=== PATIENT | male | born 1965 | race Caucasian/White ===

== ENCOUNTER 2017-04-22 17:15 | Inpatient (IN) | payer SELFPAY ==
[~2017-04-22] VITALS: Ht 172.7 cm; Wt 111.1 kg
[~2017-04-22 17:15] MED LIST: IOHEXOL-300 100 ML BOTTLE ONE; SODIUM CHLORIDE 0.9% 10ML VIAL ONE
[2017-04-22] MEDS ORDERED: OCTREOTIDE 1,000 MCG in SODIUM CHLORIDE 0.9% 100 ML IV STA (17:41)
[2017-04-22] MEDS ORDERED: OCTREOTIDE ACETATE 50 MCG/ML 1ML IV STA (17:41)
[2017-04-22] MEDS ORDERED: SODIUM CHLORIDE 0.9% 1,000 ML IV ONE (17:41)
[2017-04-22] MEDS ORDERED: PANTOPRAZOLE SODIUM 40 MG/VIAL IV STA (17:41)
[2017-04-22] MEDS ORDERED: ONDANSETRON HCL 4MG/2ML VIAL IV STA (17:41)
[2017-04-22] MEDS ORDERED: MORPHINE SULFATE 4 MG/ML CPJ (NOT FOR IM USE) IV STA (17:41)
[2017-04-22] MEDS ORDERED: PANTOPRAZOLE 80 MG in SODIUM CHLORIDE 0.9% 100 ML IV STA (17:41)
[2017-04-22] MEDS: OCTREOTIDE 1,000 MCG in SODIUM CHLORIDE 0.9% 100 ML IV SCH (19:12)
[2017-04-22 19:28] LABS: HEMATOCRIT. 30.3 % (42.0-52.0); HEMOGLOBIN. 9.8 g/dL (14.0-18.0); MEAN CORPUSCULAR HEMOGLOBIN 23.2 pg (28.0-32.0); MEAN CORPUSCULAR VOLUME 71.4 fL (80.0-94.0); MEAN PLATELET VOLUME 9.1 fl (7.4-10.4); PLATELET 114 x1000/uL (130-400); RED BLOOD CELL COUNT 4.25 mill/uL (4.7-6.1)
[2017-04-22 19:37] LABS: INR 1.6; PARTIAL THROMBOPLASTIN TIME 29.2 sec (24.0-34.0); PROTHROMBIN TIME 16.6 sec
[2017-04-22 19:47] LABS: CARBON DIOXIDE 18 mEq/L (21-32); CHLORIDE 79 mEq/L (98-107); ETHANOL BLOOD 57 mg/dL
[2017-04-22 20:41] LABS: CLARITY URINE CLOUDY (CLEAR); COLOR URINE DARK YELLOW (YELLOW); GLUCOSE URINE 2+ (NEGATIVE); KETONES URINE 1+ (NEGATIVE); LEUKOCYTE ESTERASE URINE NEGATIVE (NEGATIVE); NITRITE URINE NEGATIVE (NEGATIVE); OCCULT BLOOD URINE 2+ (NEGATIVE); PROTEIN URINE 1+ (NEGATIVE); SPECIFIC GRAVITY URINE 1.025 (1.005-1.030)
[2017-04-22 20:42] LABS: PLATELET ESTIMATE SLIGHTLY DECREASED
[2017-04-22] MEDS ORDERED: LORAZEPAM 2MG/ML CPJ IV PRN (20:45)
[2017-04-22] MEDS ORDERED: ONDANSETRON HCL 4MG/2ML VIAL IV PRN (20:45)
[2017-04-22] MEDS ORDERED: IPRATROPIUM/ALBUTEROL 0.5-3(2.5)MG/3ML NEB INH PRN (20:45)
[2017-04-22] MEDS ORDERED: GUAIFENESIN 200MG/10ML SUGAR FREE UDC PO PRN (20:45)
[2017-04-22] MEDS ORDERED: HYDROMORPHONE HCL/PF 2MG/ML CPJ IV PRN (20:45)
[2017-04-22] MEDS ORDERED: DOCUSATE SODIUM 100MG CAPSULE PO PRN (20:45)
[2017-04-22] MEDS ORDERED: HYDROCODONE/ACETAMINOPHEN 5/325MG TABLET PO PRN (20:45)
[2017-04-22] MEDS ORDERED: CLONIDINE 0.1MG TABLET PO PRN (20:45)
[2017-04-22] MEDS ORDERED: MAGNESIUM/ALUMINUM HYDROXIDE/SIMETHICONE 30ML UDC PO PRN (20:45)
[2017-04-22] MEDS ORDERED: DIPHENHYDRAMINE 50MG/ML VIAL IV PRN (20:45)
[2017-04-22] MEDS ORDERED: ACETAMINOPHEN 325MG TABLET PO PRN (20:45)
[2017-04-22] MEDS ORDERED: NA PHOS,M-B/NA PHOS,DI-BA ENEMA 118ML PR PRN (20:45)
[2017-04-22 22:15] LABS: CARBON DIOXIDE 17 mEq/L (21-32); CHLORIDE 85 mEq/L (98-107)
[2017-04-22 22:22] LABS: TROPONIN I 0.12 ng/mL (0.00-0.04)
[2017-04-22 22:59] LABS: HEMATOCRIT 24.4 % (42.0-52.0); HEMOGLOBIN 7.8 g/dL (14.0-18.0)
[2017-04-23] VITALS (92 sets, daily range): BP systolic 44–186; BP diastolic 22–91
[2017-04-23] MEDS ORDERED: SODIUM CHLORIDE 0.45% 1,000 ML IV SCH (01:00)
[2017-04-23 07:10] LABS: BASOPHILS % 0.3 % (0.0-2.0); LYMPHOCYTES % 7.9 % (20.0-50.0); MEAN CORPUSCULAR HEMOGLOBIN 24.5 pg (28.0-32.0); MEAN CORPUSCULAR VOLUME 75.5 fL (80.0-94.0); MEAN PLATELET VOLUME 10.3 fl (7.4-10.4); MONOCYTES % 8.2 % (2.0-8.0); NEUTROPHILS % 83.6 % (40.0-76.0); PLATELET 78 x1000/uL (130-400); RED BLOOD CELL COUNT 2.46 mill/uL (4.7-6.1); RED CELL DISTRIBUTION WIDTH 14.7 % (11.6-14.6)
[2017-04-23 07:20] LABS: CHLORIDE 85 mEq/L (98-107); HDL CHOLESTEROL 6 mg/dL (40-59); LDL CHOLESTEROL 26 mg/dL (5-100); TROPONIN I 0.34 ng/mL (0.00-0.04)
[2017-04-23 07:23] LABS: HEMATOCRIT. 18.6 % (42.0-52.0)
[2017-04-23 08:21] LABS: CARBON DIOXIDE 9 mEq/L (21-32)
[2017-04-23] MEDS ORDERED: SODIUM BICARBONATE 8.4% 1 MEQ/ML 50ML SYR IV NR ×2 (08:54→09:12)
[2017-04-23] MEDS ORDERED: FERROUS SULFATE 325MG TABLET PO SCH (09:00)
[2017-04-23] MEDS ORDERED: SUCCINYLCHOLINE CHLORIDE 200MG/10ML VIAL IV ONE (09:00)
[2017-04-23] MEDS ORDERED: CALCIUM GLUCONATE 100MG/ML 10ML VIAL IV ONE (09:00)
[2017-04-23] MEDS ORDERED: ETOMIDATE 2MG/ML 10ML VIAL IV ONE (09:00)
[2017-04-23] MEDS ORDERED: THIAMINE HCL 100MG TABLET PO SCH (09:00)
[2017-04-23] MEDS ORDERED: SODIUM CHLORIDE 0.9% 1,000 ML IV ONE (09:00)
[2017-04-23] MEDS ORDERED: FOLIC ACID 1MG TABLET PO SCH (09:00)
[2017-04-23 09:10] LABS: BG BASE EXCESS -25.6 mmol/L (-2.0-2.0); BG DEOXYHEMOGLOBIN 2.3 % (0.0-5.0); BG FRACTION INSPIRED OXYGEN 100; BG HCO3 ACT 6.3 mmol/L (22.0-26.0); BG METHEMOGLOBIN 0.3 % (0.0-1.5); BG OXYGEN SATURATION 97.7 % (92.0-98.5); BG OXYHEMOGLOBIN 96.4 % (94.0-97.0); BG PCO2 41.9 mmHg (35.0-45.0); BG PH 6.794 (7.350-7.450); BG PO2 194.9 mmHg (75.0-100.0); BG SAMPLE SITE LEFT BRACHIAL; BG TIDAL VOLUME(mL) 600 mL; BG TOTAL HEMOGLOBIN 5.1 g/dL (12.0-18.0); BG VENT MODE VENT - A/C; BG VENT RATE 18 set
[2017-04-23] MEDS: NOREPINEPHRINE 8 MG in DEXT 5% WATER 242 ML IV PRN ×3 (09:13→17:26)
[2017-04-23] MEDS ORDERED: MIDAZOLAM HCL 100 MG in DEXT 5% WATER 80 ML IV PRN (09:15)
[2017-04-23] MEDS ORDERED: MORPHINE SULFATE 2 MG/ML CPJ (NOT FOR IM USE) IV PRN (09:15)
[2017-04-23] MEDS: OCTREOTIDE 1,000 MCG in SODIUM CHLORIDE 0.9% 100 ML IV SCH (09:19)
[2017-04-23] MEDS: SODIUM BICARBONATE 150 MEQ in DEXTROSE 5% WATER 1,000 ML IV SCH ×2 (09:43→19:14)
[2017-04-23] MEDS: OCTREOTIDE 1,000 MCG in SODIUM CHLORIDE 0.9% 98 ML IV SCH (09:44)
[2017-04-23] MEDS: PANTOPRAZOLE 80 MG in SODIUM CHLORIDE 0.9% 100 ML IV SCH ×3 (09:46→22:59)
[2017-04-23] MEDS: PROPOFOL 10MG/ML 100ML 100 ML IV PRN ×2 (09:49→10:54)
[2017-04-23] MEDS: PHENYLEPHRINE 40 MG in DEXT 5% WATER 246 ML IV PRN ×4 (10:16→22:57)
[2017-04-23 10:17] LABS: PHOSPHORUS 3.8 mg/dL (2.5-4.9)
[2017-04-23] MEDS: DOPAMINE 400MG PREMIX 250 ML IV PRN ×2 (10:45→14:53)
[2017-04-23] MEDS: CEFEPIME 1,000 MG in DEXTROSE 5% WATER 50 ML IV SCH ×2 (10:50→21:14)
[2017-04-23] MEDS ORDERED: CALCIUM GLUCONATE 1000 MG in DEXTROSE 5% WATER 100 ML IV ONE (11:00)
[2017-04-23] MEDS: BLOOD SUGAR DIAGNOSTIC STRIP TEST SCH ×3 (11:30→21:16)
[2017-04-23] MEDS: IPRATROPIUM/ALBUTEROL 0.5-3(2.5)MG/3ML NEB HHN SCH (11:50)
[2017-04-23] MEDS: EPINEPHRINE 1 MG in SODIUM CHLORIDE 0.9% 249 ML IV PRN ×2 (12:40→19:14)
[2017-04-23 13:02] LABS: BG BASE EXCESS 27.9 mmol/L (-2.0-2.0); BG CARBOXYHEMOGLOBIN 0.9 % (0.5-1.5); BG DEOXYHEMOGLOBIN 56.3 % (0.0-5.0); BG FRACTION INSPIRED OXYGEN 100; BG HCO3 ACT 54.3 mmol/L (22.0-26.0); BG METHEMOGLOBIN 0.6 % (0.0-1.5); BG OXYGEN SATURATION 42.8 % (92.0-98.5); BG OXYHEMOGLOBIN 42.2 % (94.0-97.0); BG PCO2 79.3 mmHg (35.0-45.0); BG PH 7.453 (7.350-7.450); BG PO2 < 30.3 mmHg (75.0-100.0); BG SAMPLE SITE LEFT BRACHIAL; BG TIDAL VOLUME(mL) 600 mL; BG TOTAL HEMOGLOBIN 5.5 g/dL (12.0-18.0); BG VENT MODE VENT - A/C; BG VENT RATE 18 set
[2017-04-23] MEDS: FOLIC ACID 1 MG, THIAMINE HCL 100 MG, MVI, ADULT NO.1 10 ML in DEXT 5%/0.45% NACL 1000M... IV SCH ×4 (13:02)
[2017-04-23 13:03] LABS: HEMATOCRIT 21.6 % (42.0-52.0); HEMOGLOBIN 7.4 g/dL (14.0-18.0)
[2017-04-23 13:09] LABS: CLARITY URINE CLOUDY (CLEAR); COLOR URINE DARK YELLOW (YELLOW); GLUCOSE URINE 2+ (NEGATIVE); KETONES URINE 1+ (NEGATIVE); LEUKOCYTE ESTERASE URINE NEGATIVE (NEGATIVE); NITRITE URINE NEGATIVE (NEGATIVE); OCCULT BLOOD URINE 2+ (NEGATIVE); PROTEIN URINE 1+ (NEGATIVE); SPECIFIC GRAVITY URINE 1.036 (1.005-1.030)
[2017-04-23] MEDS ORDERED: INSULIN REGULAR (DRIP) 100 UNITS in SODIUM CHLORIDE 0.9% 99 ML IV PRN (13:15)
[2017-04-23] MEDS: INSULIN LISPRO 100 UNITS/ML SUBCUT SCH ×3 (13:24→21:15)
[2017-04-23 13:59] LABS: HEPATITIS B SURFACE ANTIGEN NEGATIVE
[2017-04-23 14:26] LABS: HEPATITIS B CORE AB IGM NEGATIVE
[2017-04-23 14:28] LABS: HEPATITIS A AB IGM NEGATIVE (NEGATIVE)
[2017-04-23 16:06] LABS: CREATINE KINASE MB FRACTION 101.8 ng/mL (0.5-3.6)
[2017-04-23 16:10] LABS: TROPONIN I 0.98 ng/mL (0.00-0.04)
[2017-04-23] MEDS: DOPAMINE 800MG PREMIX 250 ML IV PRN (21:14)
[2017-04-23] MEDS ORDERED: EPINEPHRINE 1 MG in SODIUM CHLORIDE 0.9% 249 ML IV PRN (21:15)
[2017-04-23] MEDS: NOREPINEPHRINE 16 MG in DEXT 5% WATER 234 ML IV PRN (21:16)
[2017-04-23 23:28] LABS: HEMATOCRIT 27.4 % (42.0-52.0); HEMOGLOBIN 9.3 g/dL (14.0-18.0)
[2017-04-24] VITALS (112 sets, daily range): BP systolic 44–141; BP diastolic 30–91
[2017-04-24 00:01] LABS: TROPONIN I 6.9 ng/mL (0.00-0.04)
[2017-04-24] MEDS: PHENYLEPHRINE 40 MG in DEXT 5% WATER 246 ML IV PRN ×6 (02:50→22:23)
[2017-04-24] MEDS: EPINEPHRINE 4 MG in SODIUM CHLORIDE 0.9% 249 ML IV PRN ×3 (03:21→18:49)
[2017-04-24] MEDS: NOREPINEPHRINE 16 MG in DEXT 5% WATER 234 ML IV PRN ×2 (03:22→13:03)
[2017-04-24 05:34] LABS: HEMATOCRIT. 31.6 % (42.0-52.0); HEMOGLOBIN. 11.4 g/dL (14.0-18.0); MEAN CORPUSCULAR HEMOGLOBIN 28.8 pg (28.0-32.0); MEAN CORPUSCULAR VOLUME 79.9 fL (80.0-94.0); MEAN PLATELET VOLUME 10.2 fl (7.4-10.4); RED BLOOD CELL COUNT 3.95 mill/uL (4.7-6.1)
[2017-04-24] MEDS: INSULIN LISPRO 100 UNITS/ML SUBCUT SCH ×3 (06:03→20:42)
[2017-04-24] MEDS: OCTREOTIDE 1,000 MCG in SODIUM CHLORIDE 0.9% 98 ML IV SCH (06:04)
[2017-04-24] MEDS: BLOOD SUGAR DIAGNOSTIC STRIP TEST SCH ×4 (06:04→20:00)
[2017-04-24] MEDS: DOPAMINE 800MG PREMIX 250 ML IV PRN ×2 (06:16→20:31)
[2017-04-24] MEDS: IPRATROPIUM/ALBUTEROL 0.5-3(2.5)MG/3ML NEB HHN SCH ×3 (07:32→21:01)
[2017-04-24 07:58] LABS: PLATELET 42 x1000/uL (130-400)
[2017-04-24 08:02] LABS: CREATINE KINASE MB FRACTION 571.9 ng/mL (0.5-3.6)
[2017-04-24 08:15] LABS: NUCLEATED RED BLOOD CELLS 1 /100 WBC; PLATELET ESTIMATE MARKEDLY DECREASED
[2017-04-24] MEDS: SODIUM BICARBONATE 150 MEQ in DEXTROSE 5% WATER 1,000 ML IV SCH ×2 (08:52→22:56)
[2017-04-24] MEDS: CEFEPIME 1,000 MG in DEXTROSE 5% WATER 50 ML IV SCH (08:52)
[2017-04-24] MEDS ORDERED: CALCIUM GLUCONATE 2,000 MG in DEXT 5% WATER 90 ML IV SCH (10:00)
[2017-04-24 10:18] LABS: BG BASE EXCESS -7.1 mmol/L (-2.0-2.0); BG CARBOXYHEMOGLOBIN 1.5 % (0.5-1.5); BG DEOXYHEMOGLOBIN 0.1 % (0.0-5.0); BG HCO3 ACT 14.5 mmol/L (22.0-26.0); BG METHEMOGLOBIN 0.3 % (0.0-1.5); BG OXYGEN SATURATION 99.9 % (92.0-98.5); BG OXYHEMOGLOBIN 98.1 % (94.0-97.0); BG PCO2 19.6 mmHg (35.0-45.0); BG PH 7.487 (7.350-7.450); BG PO2 409.5 mmHg (75.0-100.0); BG SAMPLE SITE RIGHT RADIAL; BG TIDAL VOLUME(mL) 600 mL; BG TOTAL HEMOGLOBIN 10.6 g/dL (12.0-18.0); BG VENT MODE VENT - A/C; BG VENT RATE 18 set
[2017-04-24] MEDS: PANTOPRAZOLE 80 MG in SODIUM CHLORIDE 0.9% 100 ML IV SCH ×2 (10:59→21:09)
[2017-04-24 12:32] LABS: BASOPHILS % 0.5 % (0.0-2.0); EOSINOPHILS % 2.3 % (0.0-5.0); HEMATOCRIT. 29.1 % (42.0-52.0); HEMOGLOBIN. 9.9 g/dL (14.0-18.0); LYMPHOCYTES % 8.9 % (20.0-50.0); MEAN CORPUSCULAR HEMOGLOBIN 28.1 pg (28.0-32.0); MEAN CORPUSCULAR VOLUME 82.6 fL (80.0-94.0); MEAN PLATELET VOLUME 10.2 fl (7.4-10.4); MONOCYTES % 4.8 % (2.0-8.0); NEUTROPHILS % 83.5 % (40.0-76.0); RED BLOOD CELL COUNT 3.52 mill/uL (4.7-6.1); RED CELL DISTRIBUTION WIDTH 17.7 % (11.6-14.6)
[2017-04-24 13:18] LABS: PLATELET 20 x1000/uL (130-400)
[2017-04-24] MEDS: FOLIC ACID 1 MG, THIAMINE HCL 100 MG, MVI, ADULT NO.1 10 ML in DEXT 5%/0.45% NACL 1000M... IV SCH ×8 (13:54→22:36)
[2017-04-24] MEDS ORDERED: ACETAMINOPHEN 325MG SUPP PR PRN ×2 (16:00→22:00)
[2017-04-24] MEDS ORDERED: INSULIN LISPRO 100 UNITS/ML SUBCUT NR (16:12)
[2017-04-24 16:52] LABS: T4 FREE 1.08 ng/dL (0.76-1.46)
[2017-04-24] MEDS: NOREPINEPHRINE 32 MG in DEXT 5% WATER 468 ML IV PRN (22:22)
[2017-04-25] VITALS (102 sets, daily range): BP systolic 45–99; BP diastolic 27–60
[2017-04-25] MEDS: INSULIN LISPRO 100 UNITS/ML SUBCUT SCH ×6 (01:07→20:00)
[2017-04-25] MEDS: DOPAMINE 800MG PREMIX 250 ML IV PRN ×6 (01:30→20:40)
[2017-04-25] MEDS: PHENYLEPHRINE 40 MG in DEXT 5% WATER 246 ML IV PRN ×5 (01:30→17:58)
[2017-04-25] MEDS: EPINEPHRINE 4 MG in SODIUM CHLORIDE 0.9% 249 ML IV PRN ×3 (02:01→16:35)
[2017-04-25] MEDS: OCTREOTIDE 1,000 MCG in SODIUM CHLORIDE 0.9% 98 ML IV SCH (02:32)
[2017-04-25] MEDS: BLOOD SUGAR DIAGNOSTIC STRIP TEST SCH ×6 (04:00→20:00)
[2017-04-25 06:00] LABS: CREATINE KINASE MB FRACTION 142.6 ng/mL (0.5-3.6)
[2017-04-25 07:14] LABS: MEAN CORPUSCULAR HEMOGLOBIN 28.5 pg (28.0-32.0); MEAN CORPUSCULAR VOLUME 81.9 fL (80.0-94.0); MEAN PLATELET VOLUME 8.5 fl (7.4-10.4); RED BLOOD CELL COUNT 1.87 mill/uL (4.7-6.1); RED CELL DISTRIBUTION WIDTH 17.3 % (11.6-14.6)
[2017-04-25 07:27] LABS: HEMATOCRIT. 15.3 % (42.0-52.0); HEMOGLOBIN. 5.3 g/dL (14.0-18.0); PLATELET 8 x1000/uL (130-400)
[2017-04-25 07:31] LABS: CHLORIDE 77 mEq/L (98-107)
[2017-04-25] MEDS: DEXTROSE 50% WATER 50ML SYRINGE IV PRN ×2 (07:33→20:48)
[2017-04-25 07:46] LABS: CARBON DIOXIDE 17 mEq/L (21-32)
[2017-04-25 08:10] LABS: BG BASE EXCESS -9.4 mmol/L (-2.0-2.0); BG CARBOXYHEMOGLOBIN 2.6 % (0.5-1.5); BG DEOXYHEMOGLOBIN 0.8 % (0.0-5.0); BG FRACTION INSPIRED OXYGEN 80; BG HCO3 ACT 16.2 mmol/L (22.0-26.0); BG METHEMOGLOBIN 0.3 % (0.0-1.5); BG OXYGEN SATURATION 99.2 % (92.0-98.5); BG OXYHEMOGLOBIN 96.3 % (94.0-97.0); BG PCO2 34.3 mmHg (35.0-45.0); BG PH 7.293 (7.350-7.450); BG PO2 172.3 mmHg (75.0-100.0); BG SAMPLE SITE RIGHT RADIAL; BG TIDAL VOLUME(mL) 500 mL; BG TOTAL HEMOGLOBIN 4.8 g/dL (12.0-18.0); BG VENT MODE VENT - A/C; BG VENT RATE 14 set
[2017-04-25] MEDS: IPRATROPIUM/ALBUTEROL 0.5-3(2.5)MG/3ML NEB HHN SCH ×3 (08:28→20:22)
[2017-04-25] MEDS: PANTOPRAZOLE 80 MG in SODIUM CHLORIDE 0.9% 100 ML IV SCH ×2 (08:28→20:39)
[2017-04-25] MEDS ORDERED: CEFEPIME 1,000 MG in DEXTROSE 5% WATER 50 ML IV SCH (09:00)
[2017-04-25] MEDS ORDERED: EPINEPHRINE 0.1MG/ML (1:10,000) 10ML SYR ONE (09:51)
[2017-04-25 10:23] LABS: ATYPICAL LYMPHOCYTES 1; NUCLEATED RED BLOOD CELLS 7 /100 WBC; PLATELET ESTIMATE MARKEDLY DECREASED
[2017-04-25] MEDS: FOLIC ACID 1 MG, THIAMINE HCL 100 MG, MVI, ADULT NO.1 10 ML in DEXT 5%/0.45% NACL 1000M... IV SCH ×4 (10:45)
[2017-04-25] MEDS ORDERED: SODIUM BICARBONATE 150 MEQ in SODIUM CHLORIDE 0.45% 1,000 ML IV SCH (13:30)
[2017-04-25] MEDS: NOREPINEPHRINE 32 MG in DEXT 5% WATER 468 ML IV PRN (16:36)
[2017-04-25 16:56] LABS: CREATINE KINASE MB FRACTION 180.5 ng/mL (0.5-3.6)
== END 2017-04-25 21:30 | disposition expired | DRG 190 ==
LOC: ER 17:28 → 5EST 20:44 → EDBEDREQ 20:50 → EDBEDREQTM 20:50 → ENRESERV 21:56 → MICUNO 04-23 07:43
PROVIDERS: ADMIT Internal Medicine; ATTEND Internal Medicine
PROC: 30233L1 Transfusion of Nonautologous Fresh Plasma into Peripheral Vein, Percutaneous Approach (ICD-10-PCS; principal; 2017-04-23)
PROC: 5A1945Z Respiratory Ventilation, 24-96 Consecutive Hours (ICD-10-PCS; 2017-04-23)
PROC: 30233N1 Transfusion of Nonautologous Red Blood Cells into Peripheral Vein, Percutaneous Approach (ICD-10-PCS; 2017-04-23)
PROC: 30233R1 Transfusion of Nonautologous Platelets into Peripheral Vein, Percutaneous Approach (ICD-10-PCS; 2017-04-23)
PROC: 30233K1 Transfusion of Nonautologous Frozen Plasma into Peripheral Vein, Percutaneous Approach (ICD-10-PCS; 2017-04-23)
PROC: 0BH17EZ Insertion of Endotracheal Airway into Trachea, Via Natural or Artificial Opening (ICD-10-PCS; 2017-04-23)
PROC: 06HM33Z Insertion of Infusion Device into Right Femoral Vein, Percutaneous Approach (ICD-10-PCS; 2017-04-23)
DX: I21.4 Non-ST elevation (NSTEMI) myocardial infarction (principal); J96.00 Acute respiratory failure, unspecified whether with hypoxia or hypercapnia; N17.0 Acute kidney failure with tubular necrosis; I46.9 Cardiac arrest, cause unspecified; E43 Unspecified severe protein-calorie malnutrition; D68.4 Acquired coagulation factor deficiency; K92.0 Hematemesis; E87.2 Acidosis; D69.59 Other secondary thrombocytopenia; E87.1 Hypo-osmolality and hyponatremia; M62.82 Rhabdomyolysis; K70.30 Alcoholic cirrhosis of liver without ascites; E83.51 Hypocalcemia; E86.0 Dehydration; E78.1 Pure hyperglyceridemia; E87.6 Hypokalemia; I10 Essential (primary) hypertension; K72.90 Hepatic failure, unspecified without coma; Z66 Do not resuscitate; F10.239 Alcohol dependence with withdrawal, unspecified; D64.9 Anemia, unspecified; R00.0 Tachycardia, unspecified; F10.229 Alcohol dependence with intoxication, unspecified; Z68.37 Body mass index [BMI] 37.0-37.9, adult
CPT/HCPCS: 31500; 36415; 36556; 36600; 70450; 71010; 74177; 76770; 80048; 80053; 80061; 81001; 82375; 82550; 82553; 82805; 82947; 82962; 83036; 83690; 83735; 83880; 84100; 84439; 84443; 84478; 84484; 85014; 85018; 85025; 85610; 85730; 86705; 86709; 86803; 86850; 86900; 86920; 86927; 87340; 93005; 93306; 93970; 94002; 94003; 94640; 96365; 96366; 96375; 99291; A4216; C9113; G0482; J0171; J0330; J0610; J0692; J1265; J1815; J2060; J2250; J2270; J2354; J2370; J2405; J2704; J3411; J3490; J7030; J7050; J7060; J7070; J7620; P9016; P9017; P9021; P9034; Q9967; A4315